=== PATIENT | female | born 2000 | race Hispanic/Latino ===

== ENCOUNTER 2022-05-20 19:08 | Inpatient (IN) | payer MEDICAID, OTHER ==
[2022-05-20] MEDS ORDERED: HYDROcodone/Acetaminophen 5/325 mg Tablet PO PRN (19:36)
[2022-05-20] MEDS ORDERED: Acetaminophen 500 MG TAB PO PRN (19:36)
[2022-05-20] MEDS ORDERED: Ondansetron PF 4 MG/2 ML Vial IVP PRN (19:36)
[2022-05-20] MEDS ORDERED: Diphenoxylate HCl/Atropine Tablet PO PRN (19:36)
[2022-05-20] MEDS ORDERED: Ibuprofen 800 MG TAB PO PRN (19:36)
[2022-05-20] MEDS ORDERED: hydrALAZINE 20 MG/ML VIAL SLOW IVP PRN (19:36)
[2022-05-20] MEDS ORDERED: Carboprost 250 MCG/ML AMP IM PRN (19:36)
[2022-05-20] MEDS ORDERED: Butorphanol Tartrate 1 MG/ML VIAL SLOW IVP PRN (19:36)
[2022-05-20] MEDS ORDERED: Misoprostol 200 MCG TAB PR PRN (19:36)
[2022-05-20] MEDS ORDERED: Promethazine HCl 25 MG/ML VIAL IM PRN (19:36)
[2022-05-20] MEDS ORDERED: Methylergonovine 0.2 MG/ML VIAL IM PRN (19:36)
[2022-05-20] MEDS ORDERED: Lidocaine 1% (PF) 30 ML VIAL SC PRN (19:36)
[2022-05-20] MEDS ORDERED: Lactated Ringer's 1,000 ML IV SCH (19:45)
[2022-05-20] MEDS ORDERED: NS w/ Oxytocin 30 units 500 ML IV SCH (19:45)
[2022-05-20 20:59] VITALS: BMI 29.9
[2022-05-20 21:07] LABS: Hemoglobin 9.3 g/dL (12.0-15.5); Mean Corpuscular HGB CONC 32.3 g/dL (32.0-36.0); Mean Corpuscular Hemoglobin 23.6 pg (27.0-33.0); Mean Corpuscular Volume 73.1 fl (81.6-98.3); Mean Platelet Volume 11.4 fl (7.4-10.4); Platelet Count 218 10x3/uL (150-450); RBC Distribution Width 15.5 % (11.5-14.5); Red Blood Cell (RBC) Count 3.94 10x6/uL (3.90-5.03); White Blood Cell (WBC) Count 9.2 10x3/uL (3.5-10.5)
[2022-05-20] MEDS ORDERED: Penicillin G Potassium 5 MILL.UNITS in Sodium Chloride 0.9% 100 ML IVPB SCH (22:00)
[2022-05-20 22:21] LABS: Syphilis Antibody Nonreactive (Nonreactive); Syphilis Antibody Index 0.03 S/CO (<1.00 Non-Reactive)
[2022-05-20 22:23] LABS: Hep B Surf Ag Non-Reactive S/CO (NonReactive)
[2022-05-21] MEDS: Misoprostol 100 MCG TAB VAG SCH ×2 (00:11→16:25)
[2022-05-21 01:31] LABS: SARS-CoV-2 NAA Rapid Test Not Detected (NotDetected)
[2022-05-21] MEDS: Penicillin G 2.5 MILL.units 2.5 MILL.UNITS in Premix Bag 1 BAG IVPB SCH ×4 (02:04→16:26)
[2022-05-21] MEDS ORDERED: Fentanyl 2 mcg/Bup 0.1% Cadd 100 ML ONE (08:12)
[2022-05-21] MEDS ORDERED: Moisturizing Cream (Eucerin) 113 GM JAR TOP PRN (09:36)
[2022-05-21] MEDS ORDERED: Naloxone HCl 0.4 mg/ml Vial IVP PRN ×2 (09:36)
[2022-05-21] MEDS ORDERED: ePHEDrine Sulfate 50 MG/10 ML VIAL SLOW IVP PRN (09:36)
[2022-05-21] MEDS ORDERED: diphenhydrAMINE 50 MG/ML VIAL IVP PRN (09:36)
[2022-05-21] MEDS ORDERED: Ondansetron PF 4 MG/2 ML Vial IVP PRN ×2 (09:36→15:07)
[2022-05-21] MEDS ORDERED: Promethazine HCl 25 MG/ML VIAL IM PRN ×2 (09:36→15:07)
[2022-05-21] MEDS ORDERED: Acetaminophen 325 MG TAB PO PRN (09:36)
[2022-05-21] MEDS ORDERED: Fentanyl 2 mcg/Bupivacaine 0.1% Cassette 100 ML EPIDURAL SCH (09:45)
[2022-05-21] MEDS ORDERED: Communication Order-Pharmacy FS SCH (09:45)
[2022-05-21] MEDS ORDERED: Lactated Ringer's 500 ML IV PRN (09:45)
[2022-05-21 13:10] LABS: RapidComm Collect By CBN
[2022-05-21 13:11] LABS: RapidComm Collect By CBN; pH (Cord, venous) 7.047 (7.250-7.350)
[2022-05-21] MEDS ORDERED: HYDROcodone/Acetaminophen 5/325 mg Tablet PO PRN (15:07)
[2022-05-21] MEDS ORDERED: Boostrix 0.5 ML (Tdap) VIAL (>/=7 yrs of age) IM ONE (15:07)
[2022-05-21] MEDS ORDERED: diphenhydrAMINE 25 MG CAP PO PRN (15:07)
[2022-05-21] MEDS ORDERED: hydrALAZINE 20 MG/ML VIAL SLOW IVP PRN (15:07)
[2022-05-21] MEDS ORDERED: Lanolin Ointment 7 GM TUBE TOP PRN (15:07)
[2022-05-21] MEDS ORDERED: Benzocaine-Menthol 82.5 ML CAN TOP PRN (15:07)
[2022-05-21] MEDS ORDERED: Bisacodyl 10 MG SUPP PR PRN (15:07)
[2022-05-21] MEDS ORDERED: Milk Of Magnesia 30 ML UDCUP PO PRN (15:07)
[2022-05-21] MEDS: Ferrous Sulfate 325 MG TAB PO SCH (16:53)
[2022-05-21] MEDS: Docusate 100 MG CAP PO SCH (20:23)
[2022-05-21] MEDS: HYDROcodone/Acetaminophen 5/325 mg Tablet PO PRN (20:25)
[2022-05-22] MEDS: Ibuprofen 800 MG TAB PO SCH ×3 (01:38→14:20)
[2022-05-22] MEDS ORDERED: Prenatal Vitamin 1 TAB PO SCH (09:00)
[2022-05-22] MEDS: Ferrous Sulfate 325 MG TAB PO SCH (09:02)
[2022-05-22] MEDS: Docusate 100 MG CAP PO SCH (09:02)
[2022-05-22 12:03] VITALS: BP 110/61; TEMP 98
[2022-05-22] MEDS: HYDROcodone/Acetaminophen 5/325 mg Tablet PO PRN (12:49)
== END 2022-05-22 16:20 | disposition home or self-care (01) | DRG 807 ==
LOC: CSHLD 19:08 → CSHPP 05-21 15:50
PROVIDERS: ADMIT Family Medicine; ATTEND Family Medicine
PROC: 10D07Z6 Extraction of Products of Conception, Vacuum, Via Natural or Artificial Opening (ICD-10-PCS; principal; 2022-05-21)
PROC: 10907ZC Drainage of Amniotic Fluid, Therapeutic from Products of Conception, Via Natural or Artificial Opening (ICD-10-PCS; 2022-05-21)
PROC: 3E0P7VZ Introduction of Hormone into Female Reproductive, Via Natural or Artificial Opening (ICD-10-PCS; 2022-05-21)
PROC: 0W8NXZZ Division of Female Perineum, External Approach (ICD-10-PCS; 2022-05-21)
DX: O99.824 Streptococcus B carrier state complicating childbirth (principal); Z37.0 Single live birth; Z20.822 Contact with and (suspected) exposure to COVID-19; Z3A.40 40 weeks gestation of pregnancy; Z79.899 Other long term (current) drug therapy; O76 Abnormality in fetal heart rate and rhythm complicating labor and delivery
CPT/HCPCS: 36415; 51702; 82805; 85027; 86780; 86850; 86900; 86901; 87340; J2405; J2540; J2590; J3490; U0002